=== PATIENT | female | born 1990 | race Caucasian/White ===

== ENCOUNTER 2018-04-29 11:22 | Emergency (ER) | payer MEDICAID, OTHER ==
[2018-04-29 11:23] VITALS: BMI 31.6
--- NOTE | 2018-04-29 11:49 | C.PDOC ---
History Of Present Illness 27 y/o female presents to the ED complaining of possible bug bites on right arm since yesterday. Patient reports mild itching, but denies any fever, chills, shortness of breath or associated symptoms. CO POSSIBLE BUG BITES R ARM SINCE YEST. +MILD ITCH, DENIES OTHER ASSOC SX EXAM NAD SKIN +MULT HIVES, SOME LESIONS C/W BUG BITE. NO CELLULITIS NO ANGIOEDEMA REMAINDER NEG Time Seen by Provider: 04/29/18 11:44 Chief Complaint (Nursing): Bite History Per: Patient History/Exam Limitations: no limitations Onset/Duration Of Symptoms: Days Current Symptoms Are (Timing): Still Present Location Of Injury: Right: Arm (Multiple bug bites ) Quality Of Symptoms: Itching Severity: Mild - Animal Bite Description Of The Animal: Unknown Past Medical History Reviewed: Historical Data, Nursing Documentation, Vital Signs - Medical History PMH: No Chronic Diseases Surgical History: No Surg Hx - [facility] Procedures DELIVERY OF PRODUCTS OF CONCEPTION, EXTERNAL APPROACH (04/07/16) MANUAL ASSIST DELIV NEC (03/26/14) REPAIR OB LACERATION NEC (03/26/14) Family History: States: No Known Family Hx - Social History Hx Alcohol Use: No Hx Substance Use: No Review Of Systems Constitutional: Negative for: Fever, Chills Respiratory: Negative for: Shortness of Breath Skin: Positive for: Other (possible bug bites with mild itching ) Physical Exam - Physical Exam Appears: No Acute Distress Skin: Other (+multiple hives, some lesions c/w bug bite, no angioedema, no cellulitis ) Head: Atraumatic, Normacephalic Eye(s): bilateral: Normal Inspection Oral Mucosa: Moist Neck: Supple Chest: Symmetrical Cardiovascular: Rhythm Regular Respiratory: Normal Breath Sounds, No Rales, No Rhonchi Neurological/Psych: Oriented x3 Gait: Steady ED Course And Treatment Progress Note: Patient given Motrin and Decadent Inj. Patient reports feeling better. Patient given Rx for benadryl. Patient instructed to follow up with PMD. Disposition Counseled Patient/Family Regarding: Diagnosis, Need For Followup, Rx Given - Disposition Referrals: [facility] [Outside] [facility] [Outside] Disposition: HOME/ ROUTINE Disposition Time: 11:48 Condition: IMPROVED Prescriptions: DiphenhydrAMINE [Benadryl] 50 mg PO TID PRN #30 cap PRN Reason: Itching / Pruritus Instructions: Insect Bites and Stings (DC) Forms: [employer] (Belgian) Print Language: UPPER SORBIAN - Clinical Impression Clinical Impression: Hives, Insect bite - Scribe Statement The provider has reviewed the documentation as recorded by the Scribjordan Tuttle All medical record entries made by the Neelaibe were at my direction and personally dictated by me. I have reviewed the chart and agree that the record accurately reflects my personal performance of the history, physical exam, medical decision making, and the department course for this patient. I have also personally directed, reviewed, and agree with the discharge instructions and disposition.
== END 2018-04-29 12:16 | disposition home or self-care (01) ==
LOC: C.ER 11:22
DX: L50.9 Urticaria, unspecified (principal); S40.861A Insect bite (nonvenomous) of right upper arm, initial encounter; W57.XXXA Bitten or stung by nonvenomous insect and other nonvenomous arthropods, initial encounter
CPT/HCPCS: 99283; J8540